=== PATIENT | male | born 1980 | race Hispanic/Latino ===

== ENCOUNTER 2019-09-02 12:57 | Emergency (ER) | payer BC, OTHER ==
[2019-09-02] MEDS ORDERED: KETOROLAC 30 MG/ML INJ ONE (13:27)
--- NOTE | 2019-09-02 14:42 | RAD REPORT ---
EXAM DESCRIPTION: US - Scrotum Testicles - 09/02/2019 2:34 pm CLINICAL HISTORY: Testicular pain COMPARISON: None FINDINGS: Right testicle measures 4.7 x 3 x 2.3 centimeters. Echotexture is homogeneous. Normal bloo d flow Left testicle measures 4.7 x 2.6 x 2 centimeters. Echotexture is homogeneous. Normal blood flow The epididymides are normal in size and echotexture. Normal blood flow is seen. Small left hydrocele IMPRESSION: Small left hydrocele
--- NOTE | 2019-09-02 14:50 | ER ---
Nurse's Notes [facility] Name: Laurent Barrientos Age: 38 yrs Sex: Male : 1980 Arrival Date: 09/02/2019 Time: 12:59 Bed 5 Private MD: Diagnosis: Hydrocele, unspecified;Bilateral inguinal hernia, without obstruction or gangrene;Pain of unknown etiology Presentation: 09/02 13:02 Presenting complaint: Patient states: "I went into [place] yesterday because I have aj1 having pain in my groin area and they did a CT scan and they saw a small hernia and now today it's starting to hurt more" Denies N/V/D. Denies fever. Also reports a burning sensation in his testicle. Transition of care: patient was not received from another setting of care. Onset of symptoms was 2018. Risk Assessment: Do you want to hurt yourself or someone else? Patient reports no desire to harm self or others. Initial Sepsis Screen: Does the patient meet any 2 criteria? No. Patient's initial sepsis screen is negative. Does the patient have a suspected source of infection? No. Patient's initial sepsis screen is negative. Care prior to arrival: None. 13:02 Method Of Arrival: Ambulatory aj1 13:02 Acuity: BRISA 3 aj1 Triage Assessment: 13:04 General: Appears in no apparent distress. comfortable, Behavior is calm, cooperative, aj1 appropriate for age. Pain: Complains of pain in pelvis Pain currently is 7 out of 10 on a pain scale. at worst was 9 out of 10 on a pain scale. Neuro: Level of Consciousness is awake, alert, obeys commands. Cardiovascular: Patient's skin is warm and dry. Respiratory: Airway is patent Respiratory effort is even, unlabored, Respiratory pattern is regular, symmetrical. Historical: - Allergies: 13:04 No Known Allergies; aj1 - Home Meds: 13:04 Duexis oral oral [Active]; aj1 - PMHx: 13:04 None; aj1 - PSHx: 13:04 None; aj1 - Immunization history:: Flu vaccine is not up to date. - Social history:: Smoking status: Patient/guardian denies using tobacco. - Ebola Screening: : Patient denies travel to an Ebola-affected area in the 21 days before illness onset. - Family history:: not pertinent. - Hospitalizations: : No recent hospitalization is reported. Screenin:06 Abuse screen: Denies threats or abuse. Nutritional screening: No deficits noted. tw2 Tuberculosis screening: No symptoms or risk factors identified. Fall Risk None identified. Assessment: 14:05 Reassessment: US at bedside at this time, unable to get VS at this time. tw2 15:18 Reassessment: Patient appears in no apparent distress at this time. No changes from tw2 previously documented assessment. Patient and/or family updated on plan of care and expected duration. Pain level reassessed. Patient is alert, oriented x 3, equal unlabored respirations, skin warm/dry/pink. Vital Signs: 13:04 BP 127 / 79; Pulse 79; Resp 18; Temp 98.4; Pulse Ox 99% on R/A; Weight 111.13 kg (R); aj1 Height 5 ft. 6 in. (167.64 cm) (R); Pain 7/10; 15:18 BP 125 / 77; Pulse 71; Resp 17; Pulse Ox 99% on R/A; tw2 13:04 Body Mass Index 39.54 (111.13 kg, 167.64 cm) aj1 ED Course: 12:59 Patient arrived in ED. as 13:03 Triage completed. aj1 13:04 Arm band placed on Patient placed in an exam room. aj1 13:05 Placed in gown. Bed in low position. Adult w/ patient. tw2 13:06 Enzo Richards MD is Attending Physician. rn 13:27 Frances Bai RN is Primary Nurse. tw2 14:34 Ultrasound completed. Patient tolerated well. sg3 14:35 US Scrotum Testicles In Process Unspecified. EDMS 15:18 No provider procedures requiring assistance completed. Patient did not have IV access tw2 during this emergency room visit. Administered Medications: 13:25 CANCELLED (Duplicate Order): TORadol - Ketorolac 15 mg IVP once rn 13:30 Drug: TORadol - Ketorolac 15 mg Route: IM; Site: left deltoid; tw2 15:19 Follow up: Response: No adverse reaction tw2 Outcome: 14:50 Discharge ordered by . rn 15:18 Discharged to home ambulatory, with significant other. tw2 15:18 Condition: stable 15:18 Discharge instructions given to patient, significant other, Instructed on discharge instructions, follow up and referral plans. medication usage, Demonstrated understanding of instructions, follow-up care, medications, Prescriptions given X 1. 15:19 Patient left the ED. tw2 Signatures: Dispatcher [employer] EDHiwot Nj, RN RN aj1 Yasmine Carney Roman, MD MD rn Wise, Tara, RN RN tw2 Rossy Yeh 3
--- NOTE | 2019-09-02 14:51 | EDPHYS ---
Physician Documentation [facility] Name: Laurent Barrientos Age: 38 yrs Sex: Male : 1980 Arrival Date: 09/02/2019 Time: 12:59 Bed 5 Private MD: ED Physician Enzo Richards HPI: 09/02 13:25 This 38 yrs old Male presents to ER via Ambulatory with complaints of pelvic rn pain. 13:25 Onset: The symptoms/episode began/occurred 55 day(s) ago. Modifying factors: The rn symptoms are alleviated by nothing, the symptoms are aggravated by pressure, sitting. Severity of symptoms: At their worst the symptoms were mild, in the emergency department the symptoms are unchanged. The patient has not experienced similar symptoms in the past. The patient has been recently seen by a physician:. Reports pain to scrotum and perineum for 5-6 days, seen at [facility] last night, neg ct abdomen other than small bilateral inguinal hernias and normal UA. Reports pain hasn't improved, and at times worse. No fever. No hematuria. no blood in stool. Reports rectal exam negative for blood last night. Reports pain when sitting and laying on his side. No pain or problems with bowel movement, no rectal or perirectal pain. . Historical: - Allergies: 13:04 No Known Allergies; aj1 - Home Meds: 13:04 Duexis oral oral [Active]; aj1 - PMHx: 13:04 None; aj1 - PSHx: 13:04 None; aj1 - Immunization history:: Flu vaccine is not up to date. - Social history:: Smoking status: Patient/guardian denies using tobacco. - Ebola Screening: : Patient denies travel to an Ebola-affected area in the 21 days before illness onset. - Family history:: not pertinent. - Hospitalizations: : No recent hospitalization is reported. ROS: 13:25 Constitutional: Negative for fever, chills, and weight loss, Eyes: Negative for injury, rn pain, redness, and discharge, Cardiovascular: Negative for chest pain, palpitations, and edema, Respiratory: Negative for shortness of breath, cough, wheezing, and pleuritic chest pain, Abdomen/GI: Negative for abdominal pain, nausea, vomiting, diarrhea, and constipation, Back: Negative for injury and pain, : Negative for injury, bleeding, discharge, and swelling, MS/Extremity: Negative for injury and deformity, Skin: Negative for injury, rash, and discoloration, Neuro: Negative for headache, weakness, numbness, tingling, and seizure. Exam: 13:25 Constitutional: This is a well developed, well nourished patient who is awake, alert, rn and in no acute distress. Head/Face: Normocephalic, atraumatic. ENT: MMM Cardiovascular: Regular rate and rhythm. No pulse deficits. Respiratory: No increased work of breathing, no retractions or nasal flaring. Abdomen/GI: soft, non-tender Male : Normal genitalia with no discharge or lesions. Normal perineum without redness/warmth/masses/fluctuance. Normal rectal and perirectal regions. Non-tender. No scrotal masses or tenderness. MS/ Extremity: Pulses equal, no cyanosis. Neurovascular intact. Full, normal range of motion. Equal circumference. Vital Signs: 13:04 BP 127 / 79; Pulse 79; Resp 18; Temp 98.4; Pulse Ox 99% on R/A; Weight 111.13 kg (R); aj1 Height 5 ft. 6 in. (167.64 cm) (R); Pain 7/10; 15:18 BP 125 / 77; Pulse 71; Resp 17; Pulse Ox 99% on R/A; tw2 13:04 Body Mass Index 39.54 (111.13 kg, 167.64 cm) aj1 MDM: 13:06 Patient medically screened. rn 14:45 Differential diagnosis: pudendal nerve pain, scrotal mass, hydrocele, hernia. Data rn reviewed: vital signs, nurses notes, old medical records, radiologic studies, ultrasound, and as a result, I will discharge patient. Counseling: I had a detailed discussion with the patient and/or guardian regarding: the historical points, exam findings, and any diagnostic results supporting the discharge/admit diagnosis, radiology results, the need for outpatient follow up, to return to the emergency department if symptoms worsen or persist or if there are any questions or concerns that arise at home. Special discussion: I discussed with the patient/guardian in detail that at this point there is no indication for admission to the hospital. It is understood, however, that if the symptoms persist or worsen the patient needs to return immediately for re-evaluation. Based on the history and exam findings, there is no indication for further emergent testing or inpatient evaluation. I discussed with the patient/guardian the need to see the primary care provider for further evaluation of the symptoms. ED course: Patient with neg u/s here of scrotum, shows small hydrocele. Patient actually complains more of perineal pain, without abnormal findings on exam. No abnormal findings of scrotum or perineum/anal regions. Pain likely not explained by small inguinal hernias that can't even be palpated in inguinal canal. Possible pudendal nerve problem. Will dc home with pain meds and steroids with pcp f/u. Symptoms present for 5 days, would expect perineal infection or perirectal abscess to have shown itself by now. neg ct and UA last night < 24 hours ago. . 09/02 13:25 Order name: US Scrotum Testicles; Complete Time: 14:45 rn Administered Medications: 13:25 CANCELLED (Duplicate Order): TORadol - Ketorolac 15 mg IVP once rn 13:30 Drug: TORadol - Ketorolac 15 mg Route: IM; Site: left deltoid; tw2 15:19 Follow up: Response: No adverse reaction tw2 Disposition: 09/02/19 14:50 Discharged to Home. Impression: Hydrocele, unspecified, Bilateral inguinal hernia, without obstruction or gangrene, Pain of unknown etiology. - Condition is Stable. - Discharge Instructions: Pelvic Pain, Male, Hydrocele, Adult. - Prescriptions for Medrol (Magen) 4 mg Oral Tablets, Dose Pack - take 1 tablet by ORAL route as directed - follow package instructions; 1 packet. - Medication Reconciliation Form, Thank You Letter, Antibiotic Education, Prescription Opioid Use, Work release form form. - Follow up: Private Physician; When: As needed; Reason: Recheck today's complaints, Re-evaluation by your physician. - Problem is an ongoing problem. - Symptoms are unchanged. Signatures: Dispatcher [employer] EDMS Hiwot Alexis RN RN aj1 Enzo Richards MD MD rn Wise, Tara, RN RN tw2 Corrections: (The following items were deleted from the chart) 13:25 13:25 TORadol - Ketorolac 15 mg IVP once ordered. rn rn 15:19 14:50 09/02/2019 14:50 Discharged to Home. Impression: Hydrocele, unspecified; tw2 Bilateral inguinal hernia, without obstruction or gangrene; Pain of unknown etiology. Condition is Stable. Forms are Work release form, Medication Reconciliation Form, Thank You Letter, Antibiotic Education, Prescription Opioid Use. Follow up: Private Physician; When: As needed; Reason: Recheck today's complaints, Re-evaluation by your physician. Problem is an ongoing problem. Symptoms are unchanged. rn
[2019-09-02 15:25] VITALS: BP 125/77; TEMP 98.4; O2SAT 99
== END 2019-09-02 15:19 | disposition home or self-care (01) ==
LOC: ER 12:57
DX: N43.3 Hydrocele, unspecified (principal); K40.20 Bilateral inguinal hernia, without obstruction or gangrene, not specified as recurrent
CPT/HCPCS: 76870; 96372; 99283